=== PATIENT | female | born 1945 | race Caucasian/White ===

== ENCOUNTER 2016-07-30 13:53 | Inpatient (IN) ==
[2016-07-30] MEDS ORDERED: 0.9 % Sodium Chloride 1,000 ML IVC ONE (14:14)
[2016-07-30] MEDS ORDERED: Ipratropium/Albuterol Neb 3 ML IH ONE (14:15)
[2016-07-30] MEDS ORDERED: methylPREDNISolone 125 MG/2 ML VIAL IV ONE (14:15)
--- NOTE | 2016-07-30 14:21 | Emergency Department Note ---
Disposition Clinical Impression: Sepsis Qualifiers: Sepsis type: sepsis due to unspecified organism Qualified Code(s): A41.9 - Sepsis, unspecified organism Altered mental status Qualifiers: Altered mental status type: coma Coma depth: Maki coma 13-15 Coma timing: at hospital admission Qualified Code(s): R40.2413 - Val[place]yer coma scale score 13- 15, at hospital admission Leukocytosis Qualifiers: Leukocytosis type: unspecified Qualified Code(s): D72.829 - Elevated white blood cell count, unspecified Pneumonia Qualifiers: Pneumonia type: due to unspecified organism Laterality: bilateral Lung location : unspecified part of lung Qualified Code(s): J18.9 - Pneumonia, unspecified organism Disposition: Admitted As Inpatient Condition: Serious Time of Disposition: 15:44 Altered Mental Status HPI - General Chief Complaint: ED Altered Mental Status Stated Complaint: AMS Time Seen by Provider: 07/30/16 14:11 Source: patient Limitations: no limitations Nursing Notes Reviewed: Yes Vital Signs Reviewed: Yes - History of Present Illness HPI Narrative: 70-year-old female with history of COPD who continues to smoke presents to the emergency department for evaluation of altered mental status. Daughter states that she spoke with her mother last night and states that she was normal at that time. She states she was contacted by family members today stating that her mother was altered and confused. She states when she arrived at her home her mother was "talking out of her head". She was speaking of children she never had. She had no idea who her daughter was. She thought the year was 1980. Daughter states this is very abnormal for her. She believes that her mother may have pneumonia again. She denies any history of trauma that she knows of. History is severely limited due to the patient's altered mentation. Exam is remarkable for an elderly female resting in bed. She is awake and conversational however is altered to place and time. Patient states she at "the room"in the date is 2015 and 2016. She does know who her daughter is but could not recite her birthday nor could she was at her own birthday. She arrives with a fever of 103F and a slightly hypoxic at 87% on room air. Heart is regular. Lungs are diminished with rhonchi noted throughout. Her abdomen is soft and nontender. Labs, x-ray and medications ordered. complaint: altered mental status Onset (ago): Just HOM[employer] [place] Timing confirmed by: family member Context: COPD Associated symptoms: Reports: cough, fever - Related Data Home Medications Medication Instructions Recorded Confirmed Albuterol Sulfate [Ventolin Hfa] 2 puff IH Q4H PRN 04/21/15 07/30/16 Citalopram Hydrobromide [Celexa] 40 mg PO HS 04/21/15 07/30/16 Gabapentin [Neurontin] 800 mg PO QID 04/21/15 07/30/16 Hydrocortisone 1% CREAM [Cortaid] 1 appl TP BID 12/14/15 07/30/16 Potassium Chloride [K-Tab ER] 20 meq PO DAILY 12/14/15 07/30/16 Acetaminophen [Tylenol] 500 mg PO Q6HR PRN 02/01/16 07/30/16 Buspirone HCl [Buspar] 15 mg PO BID 02/01/16 07/30/16 Calcium Carbonate [Calcium] 500 mg PO DAILY 02/01/16 07/30/16 Carvedilol [Coreg] 25 mg PO BID 02/01/16 07/30/16 Cholestyramine 4 gm PO BIDAC 02/01/16 07/30/16 Furosemide [Lasix] 40 mg PO DAILY 02/01/16 07/30/16 Lisinopril 10 mg PO DAILY 02/01/16 07/30/16 Multivitamin [Multi-Day Vitamins] 1 tab PO DAILY 02/01/16 07/30/16 [place]-3/Dha/Epa/Fish Oil [Fish Oil 1,000 mg PO DAILY 02/01/16 07/30/16 1,000 mg Softgel] Oxygen 2.5 l NS AD 02/01/16 07/30/16 Tizanidine HCl 4 mg PO Q8H PRN 02/01/16 07/30/16 Beclomethasone Diprop 80mcg [Qvar 2 puff IH BID 07/30/16 07/30/16 80 mcg] BuPROPion SR (12 HR) [Wellbutrin 150 mg PO BID 07/30/16 07/30/16 SR] Doxepin HCl 10 mg PO BID 07/30/16 07/30/16 Fluticasone Propionate Nasal 50 mcg NS BID 07/30/16 07/30/16 [Flonase] Montelukast [Singulair] 10 mg PO DAILY 07/30/16 07/30/16 Spironolactone [Aldactone] 12.5 mg PO BID 07/30/16 07/30/16 Previous Rx's Medication Instructions Recorded Aspirin 81 mg PO DAILY #30 tab.chew 12/18/15 Nitroglycerin 0.4 mg SL Q5MIN PRN #60 tab.subl 12/18/15 Allergies Allergy/AdvReac Type Severity Reaction Status Date / Time bupropion Allergy Unknown See Verified 07/30/16 16:40 Comments codeine Allergy Unknown See Verified 07/30/16 16:40 Comments Hydromorphone [From Dilaudid] Allergy Unknown See Verified 07/30/16 16:40 Comments naproxen Allergy Unknown See Verified 07/30/16 16:40 Comments Penicillins Allergy Unknown Hives Verified 07/30/16 16:40 rofecoxib Allergy Unknown See Verified 07/30/16 16:40 Comments tramadol Allergy Unknown See Verified 07/30/16 16:40 Comments Varenicline Allergy Unknown See Verified 07/30/16 16:40 Comments Limitations: ROS unobtainable due to patients medical condition (Altered mental status) Past Medical History - Past Medical History Medical history: Reports: arthritis, asthma, COPD, fibromyalgia, GERD, GI bleed , hypertension, malignancy, osteoporosis, renal disease, venous stasis, other Surgical history: Reports: colectomy, hip replacement, KALE/BSO, other Psychiatric history: Reports: anxiety, bipolar, depression, other PLATE KEEPER history: Reports: no PLATE KEEPER history - Social History Smoking Status: Current every day smoker Smokeless Tobacco Status: No Alcohol use: Reports: none Drug use: Reports: none Physical Exam - General Limitations: altered mental status General appearance: alert - Head Head exam: atraumatic, normocephalic, normal inspection - Chest Chest inspection: Present: normal inspection, symmetric chest wall rise - Respiratory Respiratory exam: Present: other (Diminished with rhonchi throughout) - Cardiovascular Cardiovascular exam: Present: normal rhythm, tachycardia, normal heart sounds - Abdominal Exam Abdominal exam: Present: soft, Non-Tender. Absent: tenderness, distention, guarding, rebound, rigidity - Neurological Exam Neurological exam: Present: other (Altered mental status, confused to place and time) - Skin Skin exam: Present: warm, dry, intact, normal color Course - Reevaluation(s) Reevaluation #1: Blood cell count returns at greater than 55,000. White blood cell count was 30, 000 on 05/24/2016. At that time the patient had a right upper lobe pneumonia. X- rays still pending at this time. Antibiotics have been started. Patient is receiving her second liter of IV fluids. Heart rate has decreased to 109. Time: 15:43 Reevaluation #2: Discuss case with hospitalist service. Patient accepted for further evaluation and treatment. Mentation has improved. Vital signs improving. Antibiotics being infused. Patient stable for disposition. Time: 16:44 Vital Signs Temperature 103.0 F H 07/30/16 13:57 Pulse Rate 121 07/30/16 13:57 Respiratory Rate 20 07/30/16 13:57 Blood Pressure 123/74 07/30/16 13:57 O2 Sat by Pulse Oximetry 87 L 07/30/16 13:57 Temperature 98.3 F 07/30/16 20:47 Pulse Rate 87 07/30/16 20:47 Respiratory Rate 20 07/30/16 20:47 Blood Pressure 116/67 07/30/16 20:47 O2 Sat by Pulse Oximetry 97 07/30/16 21:08 Oxygen Delivery Oxygen Delivery Nasal Cannula Altered Mental Status - Medical Records Medical records reviewed: Yes I reviewed the patient's medical records. - Lab Data Lab results reviewed: Yes I reviewed the patient's lab results. Result diagrams: 07/30/16 14:55 07/30/16 14:55 Lab Results 07/30/16 07/30/16 07/30/16 Range/Units 14:40 14:55 14:55 WBC 55.8 H* (4.3-11.1) K/mcL RBC 4.21 (3.82-4.97) M/mcL Hgb 13.4 (11.5-15.4) g/dL Hct 41.0 (35.3-44.9) % MCV 97.4 (83.0-100.0) fL MCH 31.8 (28.0-33.3) pg MCHC 32.7 (31.6-35.5) g/dL RDW 12.9 (11.5-14.5) % Plt Count 207 (140-400) K/mcL MPV 9.9 (9.4-12.4) fL Seg Neutrophils % 34.0 % Lymphocytes % 62.0 % Monocytes % 4.0 % Neutrophils # 19.0 H (1.6-8.9) K/mcL Lymphocytes # 34.6 H (0.6-4.6) K/mcL Monocytes # 2.2 H (0.0-1.3) K/mcL Smudge Cells Present A (Not Present) Platelet Estimate Normal (Normal) Sodium 133 L (136-145) mEq/L Potassium 4.5 (3.5-4.5) mEq/L Chloride 101 (98-109) mEq/L Carbon Dioxide 21 (19-29) mEq/L BUN 16 (7-20) mg/dL Creatinine 0.99 (0.57-1.11) mg/dL Est GFR ( Amer) > 60 (> 60) Est GFR (Non-Af Amer) 56 L (> 60) BUN/Creatinine Ratio 16 (6-26) Glucose 106 H (70-99) mg/dL Calculated Osmolality 278 L (280-300) Lactic Acid (0.5-2.2) mmol/L Calcium 9.4 (8.6-10.8) mg/dL Phosphorus 2.1 L (2.3-4.7) mg/dL Magnesium 1.3 L (1.6-2.6) mg/dL Total Bilirubin 0.8 (0.2-1.2) mg/dL Direct Bilirubin 0.4 (0.0-0.5) mg/dL Indirect Bilirubin 0.4 (0.0-1.2) mg/dL AST 13 (5-34) Units/L ALT 10 (0-55) Units/L Alkaline Phosphatase 78 (38-126) Units/L Troponin I (0-0.03) ng/mL Serum Total Protein 7.4 (6.0-8.3) g/dL Albumin 3.7 (3.5-5.0) g/dL Globulin 3.7 H (2.4-3.5) g/dL Albumin/Globulin Ratio 1.0 L (1.1-2.2) Urine Color Yellow (Yellow) Urine Clarity Clear (Clear) Urine pH 5.5 (5.0-8.0) pH Units Ur Specific [place] 1.018 (1.010-1.025) Urine Protein Trace (Neg-Trace) mg/dL Urine Glucose (UA) Normal (Normal) mg/dL Urine Ketones Negative (Negative) mg/dL Urine Blood Moderate H (Negative) Urine Nitrite Negative (Negative) Urine Bilirubin Negative (Negative) Urine Urobilinogen Normal (Normal) mg/dL Ur Leukocyte Esterase Negative (Negative) Urine Microscopic RBC 5-15 H (0-3) per hpf Urine Microscopic WBC 0-3 (0-3) per hpf Ur Squamous Epith Cells Few (None-Few) per lpf Urine Bacteria None Seen (None-Few) per hpf Hyaline Casts None Seen (None-Few) per lpf Ur Culture Indicated? NO (NO) 07/30/16 07/30/16 07/30/16 Range/Units 14:55 14:55 16:31 WBC (4.3-11.1) K/mcL RBC (3.82-4.97) M/mcL Hgb (11.5-15.4) g/dL Hct (35.3-44.9) % MCV (83.0-100.0) fL MCH (28.0-33.3) pg MCHC (31.6-35.5) g/dL RDW (11.5-14.5) % Plt Count (140-400) K/mcL MPV (9.4-12.4) fL Seg Neutrophils % % Lymphocytes % % Monocytes % % Neutrophils # (1.6-8.9) K/mcL Lymphocytes # (0.6-4.6) K/mcL Monocytes # (0.0-1.3) K/mcL Smudge Cells (Not Present) Platelet Estimate (Normal) Sodium (136-145) mEq/L Potassium (3.5-4.5) mEq/L Chloride (98-109) mEq/L Carbon Dioxide (19-29) mEq/L BUN (7-20) mg/dL Creatinine (0.57-1.11) mg/dL Est GFR ( Amer) (> 60) Est GFR (Non-Af Amer) (> 60) BUN/Creatinine Ratio (6-26) Glucose (70-99) mg/dL Calculated Osmolality (280-300) Lactic Acid 0.9 0.7 (0.5-2.2) mmol/L Calcium (8.6-10.8) mg/dL Phosphorus (2.3-4.7) mg/dL Magnesium (1.6-2.6) mg/dL Total Bilirubin (0.2-1.2) mg/dL Direct Bilirubin (0.0-0.5) mg/dL Indirect Bilirubin (0.0-1.2) mg/dL AST (5-34) Units/L ALT (0-55) Units/L Alkaline Phosphatase (38-126) Units/L Troponin I 0.00 (0-0.03) ng/mL Serum Total Protein (6.0-8.3) g/dL Albumin (3.5-5.0) g/dL Globulin (2.4-3.5) g/dL Albumin/Globulin Ratio (1.1-2.2) Urine Color (Yellow) Urine Clarity (Clear) Urine pH (5.0-8.0) pH Units Ur Specific [place] (1.010-1.025) Urine Protein (Neg-Trace) mg/dL Urine Glucose (UA) (Normal) mg/dL Urine Ketones (Negative) mg/dL Urine Blood (Negative) Urine Nitrite (Negative) Urine Bilirubin (Negative) Urine Urobilinogen (Normal) mg/dL Ur Leukocyte Esterase (Negative) Urine Microscopic RBC (0-3) per hpf Urine Microscopic WBC (0-3) per hpf Ur Squamous Epith Cells (None-Few) per lpf Urine Bacteria (None-Few) per hpf Hyaline Casts (None-Few) per lpf Ur Culture Indicated? (NO) - Radiology Data Radiology results reviewed: Yes I reviewed the patient's radiology results. - EKG Data EKG attestation: Yes I reviewed and interpreted this EKG. EKG shows normal: sinus rhythm Rate: tachycardia Mcdermott/QRS: normal Interpretation: no acute changes TPA Checklist - LKW: 3-4.5 hrs Add. Contraindications Patient/family understanding: The patient/family members have been counseled and understood the risk, benefit , and alternatives of treatment.
--- NOTE | 2016-07-30 14:26 | Emergency Department Note ---
START Narrative - START START: I examined this patient and my medical decision-making was reviewed with the AGRICULTURAL RESEARCH TECHNICIAN/PA/Advanced Practice Nurse/Resident Physician. I agree with the documented findings, disposition and treatment plan as described except to the extent set forth below. ED attending note: Patient seen with emergency medicine resident Dr. Gamez. We independently evaluated the patient. We independently had [id number] contact with the patient. Please see a copy of his note for details of the history and physical, evaluation, management and disposition of this emergency Department patient. Briefly: 70-year-old female brought in for altered mental status. T=103, is tachycardic and hypoxic, she meets SIRS criteria. Sepsis Rocephin started. Provided 45 minutes critical care service this patient medically stabilized. Admission anticipated. Disposition pending.
[2016-07-30 14:51] LABS: Bilirubin,Urine Negative (Negative); Blood,Urine Moderate (Negative); Clarity,Urine Clear (Clear); Color,Urine Yellow (Yellow); Glucose,Urine (UA) Normal (Normal); Ketones,Urine Negative (Negative); Leukocyte Esterase,Urine Negative (Negative); Nitrite,Urine Negative (Negative); PH,Urine 5.5 pH Units (5.0-8.0); Protein,Urine Trace mg/dL (Neg-Trace); Specific Gravity,Urine 1.018 (1.010-1.025); Urobilinogen,Urine Normal (Normal)
[2016-07-30 14:56] LABS: Bacteria,Urine None Seen per hpf (None-Few); Hyaline Casts,Urine None Seen per lpf (None-Few); Squamous Epithelial Cell,Urine Few per lpf (None-Few); WBC,Urine 0-3 per hpf (0-3)
[2016-07-30] MEDS ORDERED: 0.9 % Sodium Chloride 1,000 ML IV ONE (15:06)
[2016-07-30 15:13] LABS: Hemoglobin 13.4 g/dL (11.5-15.4); Mean Corpuscular HGB Conc 32.7 g/dL (31.6-35.5); Mean Corpuscular Hemoglobin 31.8 pg (28.0-33.3); Mean Corpuscular Volume 97.4 fL (83.0-100.0); Mean Platelet Volume 9.9 fL (9.4-12.4); Platelet Count 207 K/mcL (140-400); Red Blood Count 4.21 M/mcL (3.82-4.97); Red Cell Distribution Width 12.9 % (11.5-14.5)
[2016-07-30] MEDS ORDERED: Levofloxacin 750 MG/150 ML 750 MG/150 ML BAG IVPB ONE (15:23)
[2016-07-30] MEDS ORDERED: Vancomycin 1,000 MG in D5% in Water 250 ML IVPB ONE (15:23)
[2016-07-30] MEDS ORDERED: Cefepime HCl 2,000 MG in D5% in Water (Mini-Bag+) 100 ML IVPB ONE (15:24)
[2016-07-30 15:27] LABS: Alanine Aminotransferase 10 Units/L (0-55); Albumin 3.7 g/dL (3.5-5.0); Alkaline Phosphatase 78 Units/L (38-126); Aspartate Amino Transferase 13 Units/L (5-34); BUN/Creatinine Ratio 16 (6-26); Bilirubin,Direct 0.4 mg/dL (0.0-0.5); Bilirubin,Indirect 0.4 mg/dL (0.0-1.2); Bilirubin,Total 0.8 mg/dL (0.2-1.2); Blood Urea Nitrogen 16 mg/dL (7-20); Calcium 9.4 mg/dL (8.6-10.8); Carbon Dioxide 21 mEq/L (19-29); Chloride 101 mEq/L (98-109); Globulin 3.7 g/dL (2.4-3.5); Glucose 106 mg/dL (70-99); Magnesium 1.3 mg/dL (1.6-2.6); Osmolality,Calculated 278 (280-300); Phosphorous 2.1 mg/dL (2.3-4.7); Potassium 4.5 mEq/L (3.5-4.5); Sodium 133 mEq/L (136-145); Total Protein 7.4 g/dL (6.0-8.3); eGFR For African Americans > 60 (> 60); eGFR For Non-African Americans 56 (> 60)
[2016-07-30 15:29] LABS: Lymphocytes # 34.6 K/mcL (0.6-4.6); Monocytes # 2.2 K/mcL (0.0-1.3)
[2016-07-30 15:30] LABS: Platelet Estimate Normal (Normal); Smudge Cells Present (Not Present)
--- NOTE | 2016-07-30 17:14 | Internal Med History&Physical ---
Date of Encounter: 07/30/16 Time of Encounter: 17:10 Assessment and Plan (1) Toxic metabolic encephalopathy Current visit: Yes Status: Acute Due to pneumonia. No meningeal signs. Mental status significantly improved with hydration and antibiotics in the emergency room. She was alert and oriented times 3 during my encounter. (2) Systolic CHF Current visit: Yes Status: Acute Clinically compensated currently. Ejection fraction is 30% etiology unclear. Occlusive coronary disease ruled out in August 2014 angiogram. She had received 2 L of fluids in the emergency room. continue normal saline hydration 100 miles an hour as the patient specific. Watch for signs of clinical overload during hydration. Qualifiers: Qualified Code(s): I50.20 - Unspecified systolic (congestive) heart failure (3) HCAP (healthcare-associated pneumonia) Current visit: Yes Status: Acute I will treat the patient for age Because she is immunocompromised from the leukemia. She will be started on vancomycin cephalopod and Levaquin. I will also check for influenza virus. Will check Sputum on blood cultures. She is showing signs of sepsis. Systolic blood pressure and 120 range and map more than 65 (4) CLL (chronic lymphocytic leukemia) Current visit: Yes Status: Acute (5) Acute exacerbation of chronic obstructive pulmonary disease (COPD) Current visit: No Status: Acute Will start the patient on IV steroids and [id number] nebulizer treatment. Internal Medicine - H&P: HPI Chief complaint: Altered mental status History of present illness: Ms. Stein is a 70 year old female with multiple medical problems including COPD on oxygen as needed, CLL, severe left ventricular systolic dysfunction with EF of 30% etiology unclear, angiogram performed in 08/27/2014 showed minimal coronary disease presents with emergency room with altered mental status. Patient was in her usual state of health till this morning quaker was noted to be confused and less responsive by her . Patient daughter mentioned that she did not know where she is and and and know her or the time. She was having increased cough yellowish sputum production compared to her baseline. She was also having high fever of a 103 on arrival to the emergency room. She denies sick contacts or recent travel. No recent hospitalization within the past 3 months. She mentioned that she had periumbilical abdominal pain and nonbloody diarrhea yesterday after she ate meal in a restaurant. Workup and emergency room shows evidence of pneumonia. She continues to smoke a little less than one pack of cigarettes daily. She denies worsening lower extremity swelling or orthopnea. no chest pain. On my interview she was alert and oriented times 3 Past Med Surg Social Fam HX - Past Medical History Medical history: arthritis, asthma, COPD, fibromyalgia, GERD, GI bleed, hypertension, malignancy, osteoporosis, renal disease, venous stasis, other Psychiatric history: anxiety, bipolar, depression, other - Past Surgical History Surgical History: colectomy, hip replacement, KALE/BSO, other - Social History Smoking Status: Current every day smoker Smokeless Tobacco Status: No Alcohol use: none Drug use: none - Family History Mother Living Status: Hx Family Cardiac Disorders: Yes Hx Family Respiratory Disorders: No Hx Family Cancer: No Hx Family Endocrine Disorder: No Internal Medicine - H&P: Meds Albuterol Sulfate [Ventolin Hfa] 2 puff IH Q4H PRN 04/21/15 [History] Citalopram Hydrobromide [Celexa] 40 mg PO HS 04/21/15 [History] Gabapentin [Neurontin] 800 mg PO QID 04/21/15 [History] Hydrocortisone 1% CREAM [Cortaid] 1 appl TP BID 12/14/15 [History] Potassium Chloride [K-Tab ER] 20 meq PO DAILY 12/14/15 [History] Aspirin 81 mg PO DAILY #30 tab.chew 12/18/15 [Rx] Nitroglycerin 0.4 mg SL Q5MIN PRN #60 tab.subl 12/18/15 [Rx] Acetaminophen [Tylenol] 500 mg PO Q6HR PRN 02/01/16 [History] Buspirone HCl [Buspar] 15 mg PO BID 02/01/16 [History] Calcium Carbonate [Calcium] 500 mg PO DAILY 02/01/16 [History] Carvedilol [Coreg] 25 mg PO BID 02/01/16 [History] Cholestyramine 4 gm PO BIDAC 02/01/16 [History] Furosemide [Lasix] 40 mg PO DAILY 02/01/16 [History] Lisinopril 10 mg PO DAILY 02/01/16 [History] Multivitamin [Multi-Day Vitamins] 1 tab PO DAILY 02/01/16 [History] [place]-3/Dha/Epa/Fish Oil [Fish Oil 1,000 mg Softgel] 1,000 mg PO DAILY 02/01/16 [History] Oxygen 2.5 l NS AD 02/01/16 [History] Tizanidine HCl 4 mg PO Q8H PRN 02/01/16 [History] Beclomethasone Diprop 80mcg [Qvar 80 mcg] 2 puff IH BID 07/30/16 [History] BuPROPion SR (12 HR) [Wellbutrin SR] 150 mg PO BID 07/30/16 [History] Doxepin HCl 10 mg PO BID 07/30/16 [History] Fluticasone Propionate Nasal [Flonase] 50 mcg NS BID 07/30/16 [History] Montelukast [Singulair] 10 mg PO DAILY 07/30/16 [History] Spironolactone [Aldactone] 12.5 mg PO BID 07/30/16 [History] Allergies bupropion Allergy (Unknown, Verified 07/30/16 16:40) See Comments UNKNOWN REACTION- LISTED ON ECW codeine Allergy (Unknown, Verified 07/30/16 16:40) See Comments UNKNOWN REACTION- LISTED ON ECW Hydromorphone [From Dilaudid] Allergy (Unknown, Verified 07/30/16 16:40) See Comments UNKNOWN REACTION- LISTED ON ECW naproxen Allergy (Unknown, Verified 07/30/16 16:40) See Comments UNKNOWN REACTION- LISTED ON ECW Penicillins Allergy (Unknown, Verified 07/30/16 16:40) Hives rofecoxib Allergy (Unknown, Verified 07/30/16 16:40) See Comments UNKNOWN REACTION- LISTED ON ECW tramadol Allergy (Unknown, Verified 07/30/16 16:40) See Comments UNKNOWN REACTION- LISTED ON ECW Varenicline Allergy (Unknown, Verified 07/30/16 16:40) See Comments UNKNOWN REACTION- LISTED ON ECW All Systems PM: A 10-system review of systems was performed and is negative for pertinent findings except as documented above in the HPI. Review of systems: 10-point review of systems is negative except for HPI - Constitutional Vitals: Temp Pulse Resp BP Pulse Ox 99.9 F H 88 18 0/0 100 07/30/16 17:07 07/30/16 17:07 07/30/16 17:08 07/30/16 17:08 07/30/16 17:07 Exam: Gen.: patient is alert but lethargic, oriented not in distress. Cardiac: Normal S1 S2 no additional sounds or murmurs chest: diminished air entry, scattered expiratory wheezing. few crackles in left base abdomen soft nontender nondistended normal bowel sounds lower extremity: lax calf muscles neuro no focal deficit Internal Med - H&P Results - Labs CBC & Chem 7: 07/30/16 14:55 07/30/16 14:55
[2016-07-30] MEDS ORDERED: NON-FORMULARY MEDICATION 1 EACH EACH (Oxygen [Oxygen] 2.5 L) NS SCH (17:15)
[2016-07-30] MEDS: Cefepime HCl 2,000 MG in D5% in Water (Mini-Bag+) 100 ML IVPB SCH ×2 (18:36→18:50)
[2016-07-30] MEDS: methylPREDNISolone 125 MG/2 ML VIAL IVP SCH ×2 (18:45→23:40)
[2016-07-30] MEDS: Vancomycin 1,250 MG in D5% in Water 250 ML IVPB SCH (18:46)
[2016-07-30] MEDS: 0.9 % Sodium Chloride 1,000 ML IVC SCH (18:49)
[2016-07-30] MEDS: Fluticasone Propionate Nasal 50 MCG/SPRAY BOTTLE NS SCH (19:45)
[2016-07-30] MEDS: Ipratropium/Albuterol Neb 3 ML IH SCH ×2 (20:29→23:56)
[2016-07-30] MEDS: *HR* Heparin 5,000 UNIT/ML VIAL SQ SCH (23:40)
[2016-07-31] MEDS: Cefepime HCl 2,000 MG in D5% in Water (Mini-Bag+) 100 ML IVPB SCH ×2 (03:20→16:03)
[2016-07-31] MEDS: Ipratropium/Albuterol Neb 3 ML IH SCH ×6 (04:22→23:38)
[2016-07-31 04:33] LABS: Hemoglobin 12.2 g/dL (11.5-15.4); Red Cell Distribution Width 12.9 % (11.5-14.5)
[2016-07-31 04:34] LABS: Basophils % 0.1 %; Hematocrit 38.5 % (35.3-44.9); Immature Granulocytes % 1.9 % (0-4); Lymphocytes # 27.7 K/mcL (0.6-4.6); Mean Corpuscular HGB Conc 31.7 g/dL (31.6-35.5); Mean Corpuscular Hemoglobin 30.9 pg (28.0-33.3); Mean Corpuscular Volume 97.5 fL (83.0-100.0); Mean Platelet Volume 10.4 fL (9.4-12.4); Monocytes # 0.6 K/mcL (0.0-1.3); Monocytes % 1.1 %; Neutrophils # 24.9 K/mcL (1.6-8.9); Platelet Count 209 K/mcL (140-400); Red Blood Count 3.95 M/mcL (3.82-4.97); Segmented Neutrophils % 45.9 %
[2016-07-31 04:39] LABS: Basophils # 0.1 K/mcL (0.0-0.2)
[2016-07-31 05:19] LABS: Platelet Estimate Normal (Normal); Reactive Lymphocytes Present (Not Present); Smudge Cells Present (Not Present)
[2016-07-31 05:23] LABS: BUN/Creatinine Ratio 17 (6-26); Blood Urea Nitrogen 13 mg/dL (7-20); C-Reactive Protein 108 mg/L (Less than 5); Calcium 8.4 mg/dL (8.6-10.8); Carbon Dioxide 20 mEq/L (19-29); Chloride 106 mEq/L (98-109); Glucose 147 mg/dL (70-99); Magnesium 1.7 mg/dL (1.6-2.6); Osmolality,Calculated 285 (280-300); Potassium 4.3 mEq/L (3.5-4.5); Sodium 136 mEq/L (136-145); eGFR For African Americans > 60 (> 60); eGFR For Non-African Americans > 60 (> 60)
[2016-07-31] MEDS: methylPREDNISolone 125 MG/2 ML VIAL IVP SCH ×3 (06:17→17:41)
[2016-07-31] MEDS: 0.9 % Sodium Chloride 1,000 ML IVC SCH (06:17)
[2016-07-31] MEDS: *HR* Heparin 5,000 UNIT/ML VIAL SQ SCH ×2 (08:19→16:13)
[2016-07-31] MEDS: Aspirin 81 MG TAB.CHEW PO SCH (08:20)
[2016-07-31] MEDS: Levofloxacin 750 MG/150 ML 750 MG/150 ML BAG IVPB SCH (08:20)
[2016-07-31] MEDS: Famotidine 20 MG/2 ML VIAL IVP SCH (08:20)
[2016-07-31] MEDS: Fluticasone Propionate Nasal 50 MCG/SPRAY BOTTLE NS SCH ×2 (08:21→20:50)
[2016-07-31] MEDS: tiZANidine 4 MG TABLET PO PRN ×2 (11:17→20:47)
[2016-07-31] MEDS: Furosemide 40 MG TABLET PO SCH (11:17)
--- NOTE | 2016-07-31 11:35 | Electrocardiograph Report ---
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
--- NOTE | 2016-07-31 11:35 | Electrocardiograph Report ---
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
[2016-07-31] MEDS: Beclomethasone 80mcg MDI IH SCH ×2 (11:54→20:15)
[2016-07-31] MEDS: Gabapentin 400 MG CAPSULE PO SCH ×3 (12:52→20:43)
[2016-07-31] MEDS: Cholestyramine 4 GM POWD.PACK PO SCH (16:48)
--- NOTE | 2016-07-31 17:39 | Internal Med Progress Note ---
Date of Encounter: 07/31/16 Time of Encounter: 17:36 - Assessment and plan (1) Pneumonia Current Visit: Yes Status: Acute Qualifiers: Pneumonia type: due to unspecified organism Laterality: bilateral Lung location: unspecified part of lung Qualified Code(s): J18.9 - Pneumonia, unspecified organism (2) Acute exacerbation of chronic obstructive pulmonary disease (COPD) Current Visit: No Status: Acute (3) Acute respiratory failure with hypoxia Current Visit: No Status: Acute (4) Systolic CHF Current Visit: Yes Status: Chronic Qualifiers: Congestive heart failure chronicity: chronic Qualified Code(s): I50.22 - Chronic systolic (congestive) heart failure (5) CLL (chronic lymphocytic leukemia) Current Visit: Yes Status: Acute Assessment and plan: Patient's lung sounds as coarse bilaterally worse in the left lower lobe, Continue vancomycin, Levaquin and cefepime. Blood cultures are pending. Continue Solu-Medrol and nebulizers. Continue oral Lasix. Continue aspirin and beta himanshu. Profound leukocytosis likely secondary to chronically leukemia. We will continue to monitor closely. - Subjective Interval history: Patient evaluated, seen lying in bed. Pt denies Chest or abdominal pain, fever or chills. - Constitutional Vitals: Temp Pulse Resp BP Pulse Ox 98.3 F 70 16 104/60 88 L 07/31/16 15:27 07/31/16 15:27 07/31/16 16:56 07/31/16 15:27 07/31/16 16:56 - Head Head exam: Present: atraumatic, normocephalic - Eye Eye exam: Present: PERRL, conjuntiva pink, sclera anicteric Pupils: Present: PERRL - Neck Neck exam general surgery: Present: supple, trachea midline. Absent: lymphadenopathy - Respiratory Respiratory exam: Present: decreased breath sounds, rhonchi. Absent: accessory muscle use, rales, wheezes - Cardiovascular Cardiovascular exam: Present: RRR, +S1, +S2. Absent: diastolic murmur, gallop, rubs, systolic murmur - GI/Abdominal GI/Abdominal exam: Present: normal bowel sounds, soft, no peritoneal signs. Absent: distended, tenderness - Extremities Exam Extremities exam: Present: warm, radial pulses palpable and symetrical. Absent : calf tenderness, cyanotic, pedal edema - Neurological Exam Neurological exam: Present: CN II-XII intact, oriented X3, no focal deficits. Absent: pronater drift, facial droop, speech deficit - Skin Skin exam: Present: dry, intact Internal Medicine: Result - Labs CBC & Chem 7: 07/31/16 04:01 07/31/16 05:01 Labs: Short CBC 07/31/16 Range/Units 04:01 WBC 54.3 H* (4.3-11.1) K/mcL Hgb 12.2 (11.5-15.4) g/dL Hct 38.5 (35.3-44.9) % Plt Count 209 (140-400) K/mcL Neutrophils # 24.9 H (1.6-8.9) K/mcL BMP 07/31/16 05:01 Sodium 136 Potassium 4.3 Chloride 106 Carbon Dioxide 20 BUN 13 Creatinine 0.75 Glucose 147 H Calcium 8.4 L Consult Discharge Plan - Plan Referrals: Elias Holder DO [Primary Care Provider] -
[2016-07-31] MEDS: Vancomycin 1,250 MG in D5% in Water 250 ML IVPB SCH (17:41)
[2016-07-31] MEDS: (Doxepin Hcl [Doxepin Hcl] 10 MG) PO SCH (20:49)
[2016-08-01] MEDS: *HR* Heparin 5,000 UNIT/ML VIAL SQ SCH ×4 (00:21→23:15)
[2016-08-01] MEDS: methylPREDNISolone 125 MG/2 ML VIAL IVP SCH ×2 (00:22→07:01)
[2016-08-01] MEDS: Cefepime HCl 2,000 MG in D5% in Water (Mini-Bag+) 100 ML IVPB SCH ×2 (04:01→16:44)
[2016-08-01] MEDS: Ipratropium/Albuterol Neb 3 ML IH SCH ×5 (04:49→20:53)
[2016-08-01 05:41] LABS: Lymphocytes % 51.9 %; Mean Corpuscular Volume 96.7 fL (83.0-100.0); Monocytes % 1.7 %; Segmented Neutrophils % 44.4 %
[2016-08-01 05:43] LABS: Hematocrit 34.7 % (35.3-44.9); Hemoglobin 11.4 g/dL (11.5-15.4); Lymphocytes # 27.5 K/mcL (0.6-4.6); Mean Corpuscular HGB Conc 32.9 g/dL (31.6-35.5); Mean Corpuscular Hemoglobin 31.8 pg (28.0-33.3); Mean Platelet Volume 10.6 fL (9.4-12.4); Monocytes # 0.9 K/mcL (0.0-1.3); Platelet Count 199 K/mcL (140-400); Red Blood Count 3.59 M/mcL (3.82-4.97)
[2016-08-01 05:48] LABS: Neutrophils # 23.5 K/mcL (1.6-8.9)
[2016-08-01 05:52] LABS: BUN/Creatinine Ratio 22 (6-26); Blood Urea Nitrogen 18 mg/dL (7-20); Calcium 8.5 mg/dL (8.6-10.8); Carbon Dioxide 19 mEq/L (19-29); Chloride 105 mEq/L (98-109); Glucose 155 mg/dL (70-99); Osmolality,Calculated 287 (280-300); Potassium 3.8 mEq/L (3.5-4.5); Sodium 136 mEq/L (136-145); eGFR For African Americans > 60 (> 60); eGFR For Non-African Americans > 60 (> 60)
[2016-08-01 06:15] LABS: Platelet Estimate Normal (Normal); Reactive Lymphocytes Present (Not Present)
[2016-08-01] MEDS: Cholestyramine 4 GM POWD.PACK PO SCH ×2 (07:04→16:44)
[2016-08-01] MEDS: Beclomethasone 80mcg MDI IH SCH ×2 (07:48→20:53)
[2016-08-01] MEDS ORDERED: methylPREDNISolone 125 MG/2 ML VIAL IVP SCH (07:55)
[2016-08-01] MEDS: Furosemide 40 MG TABLET PO SCH (08:51)
[2016-08-01] MEDS: Gabapentin 400 MG CAPSULE PO SCH ×4 (08:51→20:37)
[2016-08-01] MEDS: Multivit/Ca/Min/Fe/FA 1 TAB TABLET PO SCH (08:51)
[2016-08-01] MEDS: Famotidine 20 MG/2 ML VIAL IVP SCH (08:51)
[2016-08-01] MEDS: Aspirin 81 MG TAB.CHEW PO SCH (08:51)
[2016-08-01] MEDS: Levofloxacin 750 MG/150 ML 750 MG/150 ML BAG IVPB SCH (08:52)
[2016-08-01] MEDS: Fluticasone Propionate Nasal 50 MCG/SPRAY BOTTLE NS SCH ×2 (09:01→20:38)
[2016-08-01] MEDS: (Doxepin Hcl [Doxepin Hcl] 10 MG) PO SCH ×2 (09:02→20:38)
[2016-08-01] MEDS: Nicotine 14 MG PATCH.TD24 TD SCH (12:05)
--- NOTE | 2016-08-01 16:02 | Internal Med Progress Note ---
Date of Encounter: 08/01/16 Time of Encounter: 10:45 - Assessment and plan (1) Acute and chronic respiratory failure with hypoxia Current Visit: Yes Status: Acute Assessment and plan: Stable, back to home dose of O2, continue same (2) CLL (chronic lymphocytic leukemia) Current Visit: Yes Status: Acute Assessment and plan: On IvIG by Onc Follow up as outpatient Leukocytosis elevated above baseline possibly due to HCAP and steroids Monitor closely (3) HCAP (healthcare-associated pneumonia) Current Visit: Yes Status: Acute Assessment and plan: Continue vancomycin, Levaquin and cefepime. Blood cultures preliminary negative, no growth, Flu swab negative Taper Solu-Medrol Continue nebulizers. (4) Leukocytosis Current Visit: Yes Status: Acute Qualifiers: Leukocytosis type: unspecified Qualified Code(s): D72.829 - Elevated white blood cell count, unspecified (5) Systolic CHF Current Visit: Yes Status: Chronic Assessment and plan: Chronic, stable No signs of overload Continue oral Lasix. Continue aspirin and beta himanshu. Qualifiers: Congestive heart failure chronicity: chronic Qualified Code(s): I50.22 - Chronic systolic (congestive) heart failure (6) Acute exacerbation of chronic obstructive pulmonary disease (COPD) Current Visit: Yes Status: Acute Assessment and plan: As in same mgt for HCAP (7) Tobacco abuse Current Visit: Yes Status: Acute Assessment and plan: Cessation counselling done for 5 minutes Started on NRT - Subjective Interval history: 70 Y/O F being managed for acute on chronic hypoxic respiratory failure, on hoe O2 for COPD, she is an active smoker She is also being managed for HCAP Other significant PMH is CHFrEF (EF 30%), Tobacco abuse, Depression, HTN, GERD, CLL She is seen at bedside, denies new complains - Constitutional Vitals: Temp Pulse Resp BP Pulse Ox 98.1 F 93 18 124/64 92 L 08/01/16 11:49 08/01/16 11:49 08/01/16 11:49 08/01/16 11:49 08/01/16 11:49 General appearance: Present: A&O X 3, pleasant, no acute distress - Head Head exam: Present: atraumatic, normocephalic - Eye Eye exam: Present: PERRL, conjuntiva pink, sclera anicteric Pupils: Present: PERRL - Neck Neck exam general surgery: Present: supple, trachea midline. Absent: lymphadenopathy - Respiratory Respiratory exam: Present: rhonchi. Absent: accessory muscle use, rales, wheezes - Cardiovascular Cardiovascular exam: Present: RRR, +S1, +S2. Absent: diastolic murmur, gallop, rubs, systolic murmur - GI/Abdominal GI/Abdominal exam: Present: normal bowel sounds, soft, no peritoneal signs. Absent: distended, tenderness - Extremities Exam Extremities exam: Present: warm, radial pulses palpable and symetrical. Absent : calf tenderness, cyanotic, pedal edema - Neurological Exam Neurological exam: Present: CN II-XII intact, oriented X3, no focal deficits. Absent: pronater drift, facial droop, speech deficit - Skin Skin exam: Present: dry, intact Internal Medicine: Result - Labs CBC & Chem 7: 08/01/16 04:53 08/01/16 04:53 Labs: Short CBC 08/01/16 Range/Units 04:53 WBC 52.9 H* (4.3-11.1) K/mcL Hgb 11.4 L (11.5-15.4) g/dL Hct 34.7 L (35.3-44.9) % Plt Count 199 (140-400) K/mcL Neutrophils # 23.5 H (1.6-8.9) K/mcL BMP 08/01/16 04:53 Sodium 136 Potassium 3.8 Chloride 105 Carbon Dioxide 19 BUN 18 Creatinine 0.81 Glucose 155 H Calcium 8.5 L Consult Discharge Plan - Plan Referrals: Elias Holder DO [Primary Care Provider] -
[2016-08-01] MEDS: Vancomycin 1,250 MG in D5% in Water 250 ML IVPB SCH (17:57)
[2016-08-01] MEDS ORDERED: Chloraseptic Spray 177 ML BOTTLE MM PRN (20:32)
[2016-08-01] MEDS: MethylPREDNISolone 40 MG/ML VIAL IVP SCH (20:37)
[2016-08-01] MEDS: tiZANidine 4 MG TABLET PO PRN (23:15)
[2016-08-02] MEDS: Ipratropium/Albuterol Neb 3 ML IH SCH ×3 (00:06→07:41)
[2016-08-02] MEDS: Cefepime HCl 2,000 MG in D5% in Water (Mini-Bag+) 100 ML IVPB SCH (04:01)
[2016-08-02 04:26] VITALS: BP 136/72
[2016-08-02] MEDS: *HR* Heparin 5,000 UNIT/ML VIAL SQ SCH (05:44)
[2016-08-02] MEDS ORDERED: Vancomycin 1,000 MG in D5% in Water 250 ML IVPB SCH (06:00)
[2016-08-02 06:07] LABS: Hematocrit 37.6 % (35.3-44.9); Mean Corpuscular HGB Conc 31.9 g/dL (31.6-35.5); Mean Corpuscular Hemoglobin 30.8 pg (28.0-33.3); Mean Corpuscular Volume 96.4 fL (83.0-100.0); Mean Platelet Volume 10.2 fL (9.4-12.4); Platelet Count 215 K/mcL (140-400)
[2016-08-02 06:25] LABS: BUN/Creatinine Ratio 27 (6-26); Blood Urea Nitrogen 21 mg/dL (7-20); Calcium 8.8 mg/dL (8.6-10.8); Carbon Dioxide 21 mEq/L (19-29); Chloride 105 mEq/L (98-109); Glucose 105 mg/dL (70-99); Osmolality,Calculated 285 (280-300); Sodium 136 mEq/L (136-145); eGFR For African Americans > 60 (> 60); eGFR For Non-African Americans > 60 (> 60)
[2016-08-02 06:28] LABS: Lymphocytes # 26.7 K/mcL (0.6-4.6); Neutrophils # 24.6 K/mcL (1.6-8.9); Platelet Estimate Normal (Normal); Polychromasia 1+ (Not Present)
[2016-08-02 06:29] LABS: Reactive Lymphocytes Present (Not Present)
[2016-08-02] MEDS: Beclomethasone 80mcg MDI IH SCH (07:41)
[2016-08-02] MEDS: Multivit/Ca/Min/Fe/FA 1 TAB TABLET PO SCH (08:29)
[2016-08-02] MEDS: Gabapentin 400 MG CAPSULE PO SCH ×2 (08:30→11:53)
[2016-08-02] MEDS: Aspirin 81 MG TAB.CHEW PO SCH (08:30)
[2016-08-02] MEDS: Furosemide 40 MG TABLET PO SCH (08:30)
[2016-08-02] MEDS: MethylPREDNISolone 40 MG/ML VIAL IVP SCH (08:31)
[2016-08-02] MEDS: Nicotine 14 MG PATCH.TD24 TD SCH (08:31)
[2016-08-02] MEDS: Levofloxacin 750 MG/150 ML 750 MG/150 ML BAG IVPB SCH (08:33)
--- NOTE | 2016-08-02 08:38 | Discharge Summary ---
Date of Encounter: 08/02/16 Time of Encounter: 08:38 - Discharge Diagnosis (1) Acute and chronic respiratory failure with hypoxia Priority: Primary Status: Acute (2) CLL (chronic lymphocytic leukemia) Priority: Secondary Status: Chronic (3) HCAP (healthcare-associated pneumonia) Priority: Primary Status: Acute (4) Leukocytosis Priority: Secondary Status: Chronic Qualifiers: Leukocytosis type: unspecified Qualified Code(s): D72.829 - Elevated white blood cell count, unspecified (5) Systolic CHF Priority: Secondary Status: Chronic Qualifiers: Congestive heart failure chronicity: chronic Qualified Code(s): I50.22 - Chronic systolic (congestive) heart failure (6) Acute exacerbation of chronic obstructive pulmonary disease (COPD) Priority: Primary Status: Acute (7) Tobacco abuse Priority: Secondary Status: Chronic - Discharge Medications Prescriptions: Levofloxacin 750 mg PO DAILY #4 tablet Nicotine Patch [Nicoderm] 14 mg TD DAILY #30 patch.td24 PredniSONE 40 mg PO DAILY #15 tablet Home Medications: Albuterol Sulfate [Ventolin Hfa] 2 puff IH Q4H PRN 04/21/15 [History] Citalopram Hydrobromide [Celexa] 40 mg PO HS 04/21/15 [History] Gabapentin [Neurontin] 800 mg PO QID 04/21/15 [History] Hydrocortisone 1% CREAM [Cortaid] 1 appl TP BID 12/14/15 [History] Potassium Chloride [K-Tab ER] 20 meq PO DAILY 12/14/15 [History] Aspirin 81 mg PO DAILY #30 tab.chew 12/18/15 [Rx] Nitroglycerin 0.4 mg SL Q5MIN PRN #60 tab.subl 12/18/15 [Rx] Acetaminophen [Tylenol] 500 mg PO Q6HR PRN 02/01/16 [History] Buspirone HCl [Buspar] 15 mg PO BID 02/01/16 [History] Calcium Carbonate [Calcium] 500 mg PO DAILY 02/01/16 [History] Carvedilol [Coreg] 25 mg PO BID 02/01/16 [History] Cholestyramine 4 gm PO BIDAC 02/01/16 [History] Furosemide [Lasix] 40 mg PO DAILY 02/01/16 [History] Lisinopril 10 mg PO DAILY 02/01/16 [History] Multivitamin [Multi-Day Vitamins] 1 tab PO DAILY 02/01/16 [History] [place]-3/Dha/Epa/Fish Oil [Fish Oil 1,000 mg Softgel] 1,000 mg PO DAILY 02/01/16 [History] Oxygen 2.5 l NS AD 02/01/16 [History] Tizanidine HCl 4 mg PO Q8H PRN 02/01/16 [History] Beclomethasone Diprop 80mcg [QVAR 80 mcg] 2 puff IH BID 07/30/16 [History] BuPROPion SR (12 HR) [Wellbutrin SR] 150 mg PO BID 07/30/16 [History] Doxepin HCl 10 mg PO BID 07/30/16 [History] Fluticasone Propionate Nasal [Flonase] 50 mcg NS BID 07/30/16 [History] Montelukast [Singulair] 10 mg PO DAILY 07/30/16 [History] Spironolactone [Aldactone] 12.5 mg PO BID 07/30/16 [History] Levofloxacin 750 mg PO DAILY #4 tablet 08/02/16 [Rx] Nicotine Patch [Nicoderm] 14 mg TD DAILY #30 patch.td24 08/02/16 [Rx] PredniSONE 40 mg PO DAILY #15 tablet 08/02/16 [Rx] Allergies/Adverse Reactions: Allergies bupropion Allergy (Unknown, Verified 07/30/16 16:40) See Comments UNKNOWN REACTION- LISTED ON ECW codeine Allergy (Unknown, Verified 07/30/16 16:40) See Comments UNKNOWN REACTION- LISTED ON ECW Hydromorphone [From Dilaudid] Allergy (Unknown, Verified 07/30/16 16:40) See Comments UNKNOWN REACTION- LISTED ON ECW naproxen Allergy (Unknown, Verified 07/30/16 16:40) See Comments UNKNOWN REACTION- LISTED ON ECW Penicillins Allergy (Unknown, Verified 07/30/16 16:40) Hives rofecoxib Allergy (Unknown, Verified 07/30/16 16:40) See Comments UNKNOWN REACTION- LISTED ON ECW tramadol Allergy (Unknown, Verified 07/30/16 16:40) See Comments UNKNOWN REACTION- LISTED ON ECW Varenicline Allergy (Unknown, Verified 07/30/16 16:40) See Comments UNKNOWN REACTION- LISTED ON ECW Procedures/tests Complete & Pending: Procedures Performed prior 72 hours Category Date Time Status ECG 12 lead ECG [ECG] Routine Y 07/30/16 15:11 Completed Date of admission: 07/30/16 17:01 Primary care physician: Elias Holder Consults: 07/30/16 17:03 Consult to Occupational Therapy [CONS] Routine Comment: Evaluate, develop and implement POC Consult to Physical Therapy [CONS] Routine Comment: Evaluate, develop and implement POC 07/30/16 18:17 Consult to Nutrition [CONS] Routine Comment: Consulting Provider: NUTRITION Reason for Dietary Consult: Other Other:: recent weight loss Discharging clinician: Go Bang Anticipated date of discharge: 08/02/16 - Patient Status Disposition: Home, Self-Care Condition: Serious Functional capacity at discharge: independent ambulation Overall status at discharge: patient is back to baseline - Discharge Instructions Instructions: Chronic Obstructive Pulmonary Disease (DC), Clostridium Difficile Infection (GEN), Pneumonia (DC) Follow Up With: Elias Holder, [Primary Care Provider] - 08/06/16 11:00 am ( WEB REQUEST SENT ON 08/02/16 ) - Diet and Activity Activity: resume usual activities as tolerated, wear oxygen at all times Diet: advance to your usual diet Interval History: See below Hospital course: Ms. Stein is a 70 year old female She was admitted and managed for acute on chronic hypoxic respiratory failure secondary to HCAP and COPDE. She was an active smoker up to the time of admission. She has a PMH of CHFrEF (EF 30%), Depression, CLL, GERD. She had received 4 days of Cefepime and Vancomycin IV, as well as Levofloxacin. Blood culture was negative, Flu swab was negative. Patient is seen at bedside today in n o form of distress and stale enough to be discharged home She will be sent home with prednisone taper, po Levoflox and to resume her nebs and MDIs. She had C.diff in March and is on Vancomycin taper dose po at home , no diarrhea during this admission, continue same and follow up with PCP She is already on home oxygen and encouraged to resume same. Other chronic medical conditions are stable and patient is to resume her home meds Follow up with PCP, Oncology and Pulmonology Plan of care discussed, verbalizes understanding Smoking cessation counselling was done, she was provided with NRTs Time spent discussing smoking cessation with patient: 3 to 10 minutes (3 minutes spent on tobacco cessation counselling, NRT provided) - Time Spent with Patient Total time spent providing and/or coordinating discharge services: Less than 30 minutes - Constitutional Vitals: Temp Pulse Resp BP Pulse Ox 97.7 F 67 18 136/72 92 L 08/02/16 04:24 08/02/16 04:24 08/02/16 07:41 08/02/16 04:24 08/02/16 07:41 General appearance: Present: A&O X 3, pleasant, no acute distress - Head Head exam: Present: atraumatic, normocephalic - Eye Eye exam: Present: PERRL, conjuntiva pink, sclera anicteric Pupils: Present: PERRL - Neck Neck exam general surgery: Present: supple, trachea midline. Absent: lymphadenopathy - Respiratory Respiratory exam: Present: rhonchi. Absent: accessory muscle use, rales, wheezes - Cardiovascular Cardiovascular exam: Present: RRR, +S1, +S2. Absent: diastolic murmur, gallop, rubs, systolic murmur - GI/Abdominal GI/Abdominal exam: Present: normal bowel sounds, soft, no peritoneal signs. Absent: distended, tenderness - Extremities Exam Extremities exam: Present: warm, radial pulses palpable and symetrical. Absent : calf tenderness, cyanotic, pedal edema - Neurological Exam Neurological exam: Present: CN II-XII intact, oriented X3, no focal deficits. Absent: pronater drift, facial droop, speech deficit - Skin Skin exam: Present: dry, intact
[2016-08-02] MEDS ORDERED: Famotidine 20 MG TABLET PO SCH (09:00)
[2016-08-02] MEDS: Cholestyramine 4 GM POWD.PACK PO SCH (09:31)
[2016-08-02] MEDS: (Doxepin Hcl [Doxepin Hcl] 10 MG) PO SCH (10:04)
[2016-08-02] MEDS: Fluticasone Propionate Nasal 50 MCG/SPRAY BOTTLE NS SCH (10:04)
[2016-08-02] MEDS ORDERED: Aminoglycoside Consult 1 EACH MC ONE (13:21)
--- NOTE | 2016-08-02 14:34 | Physician Discharge Referral ---
Home Health/Hosp Referral Info Transfer to: Home Health Attending Provider: Beti Provider in Charge Post Discharge: PCP - Diagnosis (1) Acute and chronic respiratory failure with hypoxia Priority: Primary Status: Acute (2) CLL (chronic lymphocytic leukemia) Priority: Secondary Status: Chronic (3) HCAP (healthcare-associated pneumonia) Priority: Primary Status: Acute (4) Leukocytosis Priority: Secondary Status: Chronic (5) Systolic CHF Priority: Secondary Status: Chronic (6) Acute exacerbation of chronic obstructive pulmonary disease (COPD) Priority: Primary Status: Acute (7) Tobacco abuse Priority: Secondary Status: Chronic - Respiratory Orders Oxygen / L per min (2L/minute to achieve O2 sat 92%) Smoking Cessation: Smoking cessation has been advised. For more information, call the [employer] Tobacco Quit Line at 9-965-FIOM-NOW. - Diet/Nutrition Diet/Nutrition Orders: Cardiac - Activity Activity Orders: Up ad william - Services Needed Following services are medically necessary services: Home Health Aide - Transfer Medications Prescriptions: Levofloxacin 750 mg PO DAILY #4 tablet Nicotine Patch [Nicoderm] 14 mg TD DAILY #30 patch.td24 PredniSONE 40 mg PO DAILY #15 tablet Home Medications: Albuterol Sulfate [Ventolin Hfa] 2 puff IH Q4H PRN 04/21/15 [History] Citalopram Hydrobromide [Celexa] 40 mg PO HS 04/21/15 [History] Gabapentin [Neurontin] 800 mg PO QID 04/21/15 [History] Hydrocortisone 1% CREAM [Cortaid] 1 appl TP BID 12/14/15 [History] Potassium Chloride [K-Tab ER] 20 meq PO DAILY 12/14/15 [History] Aspirin 81 mg PO DAILY #30 tab.chew 12/18/15 [Rx] Nitroglycerin 0.4 mg SL Q5MIN PRN #60 tab.subl 12/18/15 [Rx] Acetaminophen [Tylenol] 500 mg PO Q6HR PRN 02/01/16 [History] Buspirone HCl [Buspar] 15 mg PO BID 02/01/16 [History] Calcium Carbonate [Calcium] 500 mg PO DAILY 02/01/16 [History] Carvedilol [Coreg] 25 mg PO BID 02/01/16 [History] Cholestyramine 4 gm PO BIDAC 02/01/16 [History] Furosemide [Lasix] 40 mg PO DAILY 02/01/16 [History] Lisinopril 10 mg PO DAILY 02/01/16 [History] Multivitamin [Multi-Day Vitamins] 1 tab PO DAILY 02/01/16 [History] [place]-3/Dha/Epa/Fish Oil [Fish Oil 1,000 mg Softgel] 1,000 mg PO DAILY 02/01/16 [History] Oxygen 2.5 l NS AD 02/01/16 [History] Tizanidine HCl 4 mg PO Q8H PRN 02/01/16 [History] Beclomethasone Diprop 80mcg [QVAR 80 mcg] 2 puff IH BID 07/30/16 [History] BuPROPion SR (12 HR) [Wellbutrin SR] 150 mg PO BID 07/30/16 [History] Doxepin HCl 10 mg PO BID 07/30/16 [History] Fluticasone Propionate Nasal [Flonase] 50 mcg NS BID 07/30/16 [History] Montelukast [Singulair] 10 mg PO DAILY 07/30/16 [History] Spironolactone [Aldactone] 12.5 mg PO BID 07/30/16 [History] Levofloxacin 750 mg PO DAILY #4 tablet 08/02/16 [Rx] Nicotine Patch [Nicoderm] 14 mg TD DAILY #30 patch.td24 08/02/16 [Rx] PredniSONE 40 mg PO DAILY #15 tablet 08/02/16 [Rx] Allergies/Adverse Reactions: Allergies bupropion Allergy (Unknown, Verified 07/30/16 16:40) See Comments UNKNOWN REACTION- LISTED ON ECW codeine Allergy (Unknown, Verified 07/30/16 16:40) See Comments UNKNOWN REACTION- LISTED ON ECW Hydromorphone [From Dilaudid] Allergy (Unknown, Verified 07/30/16 16:40) See Comments UNKNOWN REACTION- LISTED ON ECW naproxen Allergy (Unknown, Verified 07/30/16 16:40) See Comments UNKNOWN REACTION- LISTED ON ECW Penicillins Allergy (Unknown, Verified 07/30/16 16:40) Hives rofecoxib Allergy (Unknown, Verified 07/30/16 16:40) See Comments UNKNOWN REACTION- LISTED ON ECW tramadol Allergy (Unknown, Verified 07/30/16 16:40) See Comments UNKNOWN REACTION- LISTED ON ECW Varenicline Allergy (Unknown, Verified 07/30/16 16:40) See Comments UNKNOWN REACTION- LISTED ON ECW Certification: Further, I certify that my clinical findings support that this patient is homebound (i.e. absences from home require considerable and taxing effort and are for medical reasons or druze services or infrequently or short duration when for other reasons) because: Homebound Reason: Patient requires assistance of a person or device to safely leave home, Severity of cardiac or pulmonary status limits activity tolerance Attestation: My signature below is to certify that this patient is under my care and that I, or nurse practitioner, or a physician's assistant public defender working with me, has a face-to -face encounter with this patient.
== END 2016-08-02 13:22 | disposition home or self-care (01) | DRG 190 ==
LOC: EMEROO 13:53 → SUATTDRO 17:01 → 2NNU 17:01 → 2ANU 07-31 12:10
PROVIDERS: ADMIT Hospitalist; ATTEND Internal Medicine